=== PATIENT | male | born 1980 | race Caucasian/White ===

== ENCOUNTER 2018-03-12 19:46 | Emergency (ER) | payer MEDICARE, MEDICAID, SELFPAY ==
[2018-03-12 19:54] VITALS: BP 116/75; PULSE 88; RESP 18; TEMP 36.7; O2SAT 95
--- NOTE | 2018-03-12 19:57 | ED.GENADUL ---
Disposition Clinical Impression: Constipation Disposition: HOME Condition: Good Instructions: Constipation (ED) Additional Instructions: Continue your Dulcolax. Increase your water and your fiber intake. Follow-up with your primary care next week if continued problems with hard stool. Return to ED for fever, vomiting, persistent abdominal pain. Referrals: Cayla Youngblood MD [Primary Care Provider] - Medical Decision Making - Medical Decision Making Patient with complaint of constipation, yet has had 2 bowel movements today. Reporting that his stool is just hard. Has no abdominal pain, fever, vomiting. His abdominal exam is benign. Rectal deferred as he just had a bowel movement approximately 1 hour prior to coming in. He just feels that his stool is harder than it should be. Recommend continuing Dulcolax. Increase water intake as well as fiber intake. Follow-up with his primary care next week if continued problems. Return to ED for fever, vomiting, abdominal pain. History of Present Illness - General Chief complaint: Abd Prob Stated complaint: CALEX Time Seen by Provider: 03/12/18 19:57 Source: patient, EMS Mode of arrival: EMS - History of Present Illness Initial comments: Patient presents to the ED with complaints of constipation. He states he has had 2 bowel movements today but they were hard. He does not have any abdominal pain. He has had no fever. He has no vomiting. He was able to eat and drink today. He is having no difficulty urinating. He does take Dulcolax daily. He actually just had a bowel movement approximately 1 hour prior to coming in. - Related Data BusPIRone [Buspar] 30 mg PO BID 11/03/14 Levothyroxine Sodium 50 mcg PO DAILY 05/30/15 Rosuvastatin Calcium [Crestor] 40 mg PO DAILY 07/29/16 LevETIRAcetam [Keppra] 1,000 mg PO BID #120 tab-cap 09/28/16 Multivitamin [Daily Multiple Vitamin] 1 each PO DAILY 01/09/17 ARIPiprazole [Abilify] 5 mg PO DAILY 11/25/17 Divalproex Sodium [Depakote] 1,000 mg PO BID 01/07/18 Allergies Allergy/AdvReac Type Severity Reaction Status Date / Time atorvastatin Allergy Unverified 03/12/18 19:53 lamotrigine Allergy Unverified 03/12/18 19:53 sertraline Allergy Unverified 03/12/18 19:53 Review of Systems Constitutional: denies: fever Respiratory: denies: shortness of breath Cardiovascular: denies: chest pain Gastrointestinal: constipation. denies: abdominal pain, nausea, vomiting, diarrhea Genitourinary: denies: dysuria Musculoskeletal: denies: back pain Past Medical History - Past Medical History TBI, seizures, high cholesterol, hypothyroidism, Asperger's syndrome Surgical history: other (left leg fracture, brain tumor resection) - Social History Smoking status: never smoker Alcohol use: none Drug use: none General Exam - General Limitations: no limitations General appearance: alert, in no apparent distress - Head Head exam: Present: atraumatic, normocephalic - Eye Eye exam: Present: normal apperance - Respiratory Respiratory exam: Present: normal lung sounds bilaterally - Cardiovascular Cardiovascular Exam: Present: regular rate, normal rhythm, normal heart sounds - GI/Abdominal GI/Abdominal exam: Present: soft, normal bowel sounds. Absent: distended, tenderness, guarding - Neurological Exam Neurological exam: Present: alert, oriented X3, CN II-XII intact. Absent: motor sensory deficit Course Vital Signs - 24 hr 03/12/18 19:54 Temperature 98.1 F Pulse 88 Respiratory 18 Rate Blood Pressure 116/75 Pulse Oximetry 95
== END 2018-03-12 20:16 | disposition home or self-care (01) ==
PROVIDERS: Emergency Provider Emergency Medicine; PCP Family Medicine
DX: K59.00 Constipation, unspecified (principal)
CPT/HCPCS: 99283; 99282

== ENCOUNTER 2018-03-17 14:49 | Emergency (ER) | payer MEDICARE, MEDICAID, SELFPAY ==
[2018-03-17 14:50] VITALS: BP 126/76; PULSE 88; RESP 20; TEMP 37.1; O2SAT 100
--- NOTE | 2018-03-17 15:06 | W.ED.GENAD ---
Discharge Plan Discharge Details Chief Complaint: GenMedical Clinical Impression: Shakiness Reason For Visit: SCARLETT Primary Care Provider: Provider,Temporary ED Provider: David Mendez Disposition Patient Disposition: HOME Condition: Stable Home Meds and New Rx's Prescriptions: Continue multivitamin [Daily Multiple] 1 EACH tablet 1 ea PO DAILY RF: 0 buspirone 15 MG tablet 30 mg PO BID RF: 0 levothyroxine 50 MCG tablet 50 mcg PO DAILY RF: 0 rosuvastatin [Crestor] 40 MG tablet 40 mg PO DAILY RF: 0 levetiracetam [Keppra] 500 MG tablet 1,000 mg PO BID Qty: 120 RF: 12 aripiprazole [Abilify] 5 MG tablet 5 mg PO DAILY RF: 0 divalproex [Depakote] 500 MG tablet,delayed release (DR/EC) 1,000 mg PO BID RF: 0 Discharge Instructions Additional Instructions: You had a normal neurological exam here today. It is unlikely what you are experiencing is seizures follow up with your primary care provider this week if you have worsening symptoms, high fevers, or lose consciousness return to the emergency department Discharge Data Discharge Physician: David Mendez Medical Decision Making [facility] Narrative Medical decision making narrative: 37 yo male with hx of tbi, seizures, who comes inw ith complaints of feeling shaky lasting a few minutes the past day. Denies any loc and states all extremities will start having mild tremor. no loc, headache, fevers, chest pain, sob. Has no focal neuro defictis here. His symptoms do not sound typical of a seizure given extensive shaking and no loc. I suspect this could be anxiety related. Has no symptoms now so do not feel eval with lab work or imaging indicated. ADvised he f/u with pcp and return precautions given Differential Diagnosis anxiety, seizure HPI - General Adult General Date/Time Provider Initiated Documentation: 03/17/18 14:53. Limitations to Documentation: no limitations. Information obtained by: patient. History of Present Illness 37 year old M presents to the emergency department with the chief complaint of intermittent episodes of feeling shaky, described as mild, with intensity rated at 4. Quality is described as other (shaky), and is localized to the upper extremity and lower extremity. Patient reports no radiation. Patient started experiencing this day(s) (1) and it has been intermittent. No relieving factors improve symptom(s), No exacerbating factors reported . Patient notes no other symptoms.. Patient did receive the following treatments prior to arrival, none Related Data Home Medications Medication Instructions Recorded Confirmed buspirone 30 mg PO BID 11/03/14 03/17/18 levothyroxine 50 mcg PO DAILY 05/30/15 03/17/18 rosuvastatin [Crestor] 40 mg PO DAILY 07/29/16 03/17/18 multivitamin [Daily Multiple] 1 ea PO DAILY 01/09/17 03/17/18 aripiprazole [Abilify] 5 mg PO DAILY 11/25/17 03/17/18 divalproex [Depakote] 1,000 mg PO BID 01/07/18 03/17/18 Previous Rx's Medication Instructions Recorded levetiracetam [Keppra] 1,000 mg PO BID #120 tab-cap 09/28/16 Allergies Allergy/AdvReac Type Severity Reaction Status Date / Time atorvastatin Allergy Unverified 03/17/18 14:52 lamotrigine Allergy Unverified 03/17/18 14:52 sertraline Allergy Unverified 03/17/18 14:52 General Stated Complaint: GenMedical MARY: 4 Review of Systems Review of Systems All systems reviewed & are unremarkable except as noted in HPI and below Constitutional Denies chills, Denies fever(s) and Denies weakness Eyes Patient Denies loss of vision ENT Denies change in voice Cardiovascular Denies chest pain and Denies dyspnea Respiratory Denies dyspnea Gastrointestinal Denies abdominal pain, Denies nausea and Denies vomiting Genitourinary Denies dysuria Musculoskeletal Denies joint swelling Integumentary/Breasts Denies rash Neurologic Denies loss of vision and Denies weakness Psychiatric Denies depression, Denies homicidal ideation and Denies suicidal ideation Endocrine Denies cold intolerance and Denies heat intolerance Allergic/Immunologic Reports urticaria PFSH Social History Smoking/Tobacco Use Status: Never Surgical History Fracture, Open Treatment (07/30/15) Exam Const General: no acute distress Orientation: alert HENWY Head: normal to inspection Ears: external ears normal General nose exam: external nose normal Mouth: moist mucous membranes Eyes General: appearance normal, both eyes and all related structures Neck Neck: normal visual inspection Resp Effort & Inspection: normal respiratory effort and able to speak in complete sentences Cardio Rate: regular rate Skin General skin exam: no rashes or lesions noted Neuro General: alert, oriented x3, gait normal, moves all extremities, normal light touch, pain and propioception and deep tendon reflexes 2+ bilaterally Cranial Nerves: CN's II-XI intact bilaterally and PERRL Speech: speech normal Gait: normal gait Motor: muscle tone normal throughout Sensory Exam: no sensory deficits noted Extrem General: normal to inspection Psych Mental Status: mental status grossly normal Course Vital Signs Temperature 37.1 C 03/17/18 14:50 Pulse 88 03/17/18 14:50 Respiratory Rate 20 03/17/18 14:50 Blood Pressure 126/76 03/17/18 14:50 Pulse Oximetry 100 03/17/18 14:50 Temperature 37.1 C 03/17/18 14:50 Pulse 88 03/17/18 14:50 Respiratory Rate 20 03/17/18 14:50 Blood Pressure 126/76 03/17/18 14:50 Pulse Oximetry 100 03/17/18 14:50
--- NOTE | 2018-03-17 15:14 | ED.GENADUL_ITS ---
Discharge Plan Discharge Details Chief Complaint: GenMedical Clinical Impression: Shakiness Reason For Visit: SCARLETT Primary Care Provider: Provider,Temporary ED Provider: David Mendez Disposition Patient Disposition: HOME Condition: Stable Home Meds and New Rx's Prescriptions: Continue multivitamin [Daily Multiple] 1 EACH tablet 1 ea PO DAILY RF: 0 buspirone 15 MG tablet 30 mg PO BID RF: 0 levothyroxine 50 MCG tablet 50 mcg PO DAILY RF: 0 rosuvastatin [Crestor] 40 MG tablet 40 mg PO DAILY RF: 0 levetiracetam [Keppra] 500 MG tablet 1,000 mg PO BID Qty: 120 RF: 12 aripiprazole [Abilify] 5 MG tablet 5 mg PO DAILY RF: 0 divalproex [Depakote] 500 MG tablet,delayed release (DR/EC) 1,000 mg PO BID RF: 0 Discharge Instructions Additional Instructions: You had a normal neurological exam here today. It is unlikely what you are experiencing is seizures follow up with your primary care provider this week if you have worsening symptoms, high fevers, or lose consciousness return to the emergency department Discharge Data Discharge Physician: David Mendez Medical Decision Making [facility] Narrative Medical decision making narrative: 37 yo male with hx of tbi, seizures, who comes inw ith complaints of feeling shaky lasting a few minutes the past day. Denies any loc and states all extremities will start having mild tremor. no loc , headache, fevers, chest pain, sob. Has no focal neuro defictis here. His symptoms do not sound typical of a seizure given extensive shaking and no loc. I suspect this could be anxiety related. Has no symptoms now so do not feel eval with lab work or imaging indicated. ADvised he f/u with pcp and return precautions given Differential Diagnosis anxiety, seizure HPI - General Adult General Date/Time Provider Initiated Documentation: 03/17/18 14:53 . Limitations to Documentation: no limitations . Information obtained by: patient . History of Present Illness 37 year old M presents to the emergency department with the chief complaint of intermittent episodes of feeling shaky, described as mild, with intensity rated at 4. Quality is described as other (shaky), and is localized to the upper extremity and lower extremity. Patient reports no radiation. Patient started experiencing this day(s) (1) and it has been intermittent. No relieving factors improve symptom(s), No exacerbating factors reported . Patient notes no other symptoms.. Patient did receive the following treatments prior to arrival, none Related Data Home Medications Medication Instructions Recorded Confirmed buspirone 30 mg PO BID 11/03/14 03/17/18 levothyroxine 50 mcg PO DAILY 05/30/15 03/17/18 rosuvastatin [Crestor] 40 mg PO DAILY 07/29/16 03/17/18 multivitamin [Daily Multiple] 1 ea PO DAILY 01/09/17 03/17/18 aripiprazole [Abilify] 5 mg PO DAILY 11/25/17 03/17/18 divalproex [Depakote] 1,000 mg PO BID 01/07/18 03/17/18 Previous Rx's Medication Instructions Recorded levetiracetam [Keppra] 1,000 mg PO BID #120 tab-cap 09/28/16 Allergies Allergy/AdvReac Type Severity Reaction Status Date / Time atorvastatin Allergy Unverified 03/17/18 14:52 lamotrigine Allergy Unverified 03/17/18 14:52 sertraline Allergy Unverified 03/17/18 14:52 General Stated Complaint: GenMedical MARY: 4 Review of Systems Review of Systems All systems reviewed & are unremarkable except as noted in HPI and below Constitutional Denies chills, Denies fever(s) and Denies weakness Eyes Patient Denies loss of vision ENT Denies change in voice Cardiovascular Denies chest pain and Denies dyspnea Respiratory Denies dyspnea Gastrointestinal Denies abdominal pain, Denies nausea and Denies vomiting Genitourinary Denies dysuria Musculoskeletal Denies joint swelling Integumentary/Breasts Denies rash Neurologic Denies loss of vision and Denies weakness Psychiatric Denies depression, Denies homicidal ideation and Denies suicidal ideation Endocrine Denies cold intolerance and Denies heat intolerance Allergic/Immunologic Reports urticaria PFSH Social History Smoking/Tobacco Use Status: Never Surgical History Fracture, Open Treatment (07/30/15) Exam Const General: no acute distress Orientation: alert HENPR Head: normal to inspection Ears: external ears normal General nose exam: external nose normal Mouth: moist mucous membranes Eyes General: appearance normal, both eyes and all related structures Neck Neck: normal visual inspection Resp Effort & Inspection: normal respiratory effort and able to speak in complete sentences Cardio Rate: regular rate Skin General skin exam: no rashes or lesions noted Neuro General: alert, oriented x3, gait normal, moves all extremities, normal light touch, pain and propioception and deep tendon reflexes 2+ bilaterally Cranial Nerves: CN's II-XI intact bilaterally and PERRL Speech: speech normal Gait: normal gait Motor: muscle tone normal throughout Sensory Exam: no sensory deficits noted Extrem General: normal to inspection Psych Mental Status: mental status grossly normal Course Vital Signs Temperature 37.1 C 03/17/18 14:50 Pulse 88 03/17/18 14:50 Respiratory Rate 20 03/17/18 14:50 Blood Pressure 126/76 03/17/18 14:50 Pulse Oximetry 100 03/17/18 14:50 Temperature 37.1 C 03/17/18 14:50 Pulse 88 03/17/18 14:50 Respiratory Rate 20 03/17/18 14:50 Blood Pressure 126/76 03/17/18 14:50 Pulse Oximetry 100 03/17/18 14:50
[2018-03-17 15:19] VITALS: BP 126/76; PULSE 88; RESP 20; TEMP 37.1; O2SAT 100
== END 2018-03-17 15:18 | disposition home or self-care (01) ==
PROVIDERS: Emergency Provider Emergency Medicine; PCP Nurse Practitioner
DX: R25.1 Tremor, unspecified (principal); G40.909 Epilepsy, unspecified, not intractable, without status epilepticus; Z87.820 Personal history of traumatic brain injury
CPT/HCPCS: 99283